=== PATIENT | male | born 1930 | race Caucasian/White ===

== ENCOUNTER 2016-11-13 08:25 | Inpatient (IN) | payer MEDICARE, OTHER ==
--- NOTE | ~2016-11-13 | CO ---
Unit #: [id number] #: [id number] Patient: CHANDLER CROOKS [id number] [facility]. [place], [place] [address] [id number] I MR#: [id number] NAME: CHANDLER CROOKS ROOM: 561 Age: 86 Sex: M Admission Date: 11/13/2016 : 1930 Attending Physician: Saul Giles M.D. Primary Care Physician: Jamie Elizalde Aprn Consultation Date: 11/13/2016 CONSULTATION REPORT REFERRING PHYSICIAN Dr. Alves HISTORY OF PRESENT ILLNESS This is an 86-year-old gentleman with a past medical history of congestive heart failure, diabetes, COPD, chronic respiratory failure, valvular heart disease, pulmonary hypertension, chronic atrial fibrillation, chronic kidney insufficiency, GERD, and dementia, who presented to the emergency department for evaluation of the above. He is a very poor historian. His history is obtained from the family. He has a four-day history of increasing shortness of air and nonproductive cough. Patient was going to see Dr. Stevenson today to see if he is in any state to be transferred to [place]. Patient denies any sort of fevers or chills, but he is having this four-day increasing shortness of breath. He is having increased cough. He is not having chest pain, and he is not having any nausea, vomiting, or diarrhea. He has significant increased swelling of his legs. A few dietary indiscretions. The family states he has had some [place] food recently. Apparently, patient's visiting nurse has been giving him an extra dose of Bumex. Patient has been gaining weight since his last hospital stay. He had +1 lower extremity edema today. Those have, however, been going down even before patient's admission. Patient is close to his baseline. Initial saturation on his home O2 was 87% on two liters nasal cannula. Patient at home has three liters nasal cannula. He has bilateral basilar infiltrates and bilateral pleural effusions. Patient was placed on vancomycin, Zosyn, and tobramycin, and was placed on Solu-Medrol, and we have been asked to consult for any further COPD changes. PAST MEDICAL HISTORY 1. Acute Streptococcus pneumoniae on August 17, 2016, with a peripneumonia pleural effusion. He was discharged to rehab. 2. Congestive heart failure with ejection fraction of 20%. Sees Dr. Avalos. 3. Chronic obstructive pulmonary disease followed by Dr. Stevenson. 4. Chronic respiratory failure on two to three liters of oxygen. 5. Moderate to severe aortic stenosis, not a candidate for TAVR and not a candidate for open heart surgery. 6. Diabetes. 7. Right upper lung nodule. 8. Pulmonary hypertension. 9. Chronic kidney disease stage 3 with baseline creatinine of 1.1. Unit #: [id number] #: [id number] Patient: CHANDLER CROOKS 10. Atrial fibrillation. Patient is not on chronic anticoagulation. PAST SURGICAL HISTORY 1. Bronchoscopy. 2. Chest tube placement. 3. Colonoscopy. SOCIAL HISTORY Patient lives with . He walks with a cane. Former smoker. Full Code. No history of polysubstance use. OCCUPATIONAL HISTORY Noncontributory. FAMILY HISTORY Coronary artery disease. ALLERGIES No known medical allergies. MEDICATIONS 1. Aspirin 81 mg daily. 2. Divalproex 500 mg twice daily. 3. Glipizide 10 mg twice daily. 4. Bumex 2 mg daily. 5. Omeprazole 40 mg daily. 6. Flomax 0.4 mg twice daily. 7. Aldactone 25 mg daily. 8. Symbicort 160/4.5 at 2 puffs inhaled twice daily. 9. Norvasc 5 mg daily. 10. Iron 325 mg twice daily. 11. Lipitor 20 mg daily. 12. MiraLax 17 grams daily. REVIEW OF SYSTEMS Significant for what is in the History of Present Illness. Patient is unable to give much beyond that. PHYSICAL EXAMINATION VITAL SIGNS: T-current 97.4, pulse 90, respiratory rate 18, blood pressure 132/93, and saturating 93% on two liters nasal cannula. Ins and outs not recorded yet. HEENT: Extraocular muscles are intact. Pupils are equal, round, and reactive to light. CHEST: Kind of decreased breath sounds bilaterally. CARDIOVASCULAR: Regular rate. No gallop. ABDOMEN: Soft, nontender, and nondistended. EXTREMITIES: No evidence of edema. DIAGNOSTIC STUDIES LABORATORY: Procalcitonin 0.05. Cardiac enzymes negative x2. INR is 1. BNP is 131. Depakote level is 34. CK-MB is (1) . Lactic acid is 0.8. White count is 6.3, hemoglobin 10.1, and platelets 248,000. Chem-7 significant for glucose of 66, bicarb 34, BUN and creatinine 14 and 0.7. Otherwise, a comprehensive metabolic panel including liver function tests is most unremarkable. ASSESSMENT AND PLAN Unit #: [id number] #: [id number] Patient: CHANDLER CROOKS Worsening respiratory failure. I do suspect this is mostly fluid overload related as labs all appear to be negative. For imaging, I am going to get a CT scan. Try to see if we can get a sputum culture. We will go ahead and do a short course of treatment of healthcare-associated pneumonia and leave him on the triple antibiotics. Hopefully, we will be able to deescalate fairly soon. Thank you very much for this consult and allowing us to participate in the care of this patient. Dictated by.Viv Stevens/walt TD: 11/14/2016 16:38 JOB #: [id number] CONSULTATION REPORT Page 1 of 1 X Michael Duncan MD X CONSULTATION REPORT
--- NOTE | ~2016-11-13 | CR72 ---
[facility] A Service of [facility] RADIOLOGY TEXT RESULTS PATIENT: CHANDLER CROOKS LOCATION: [facility] [id number] : [birth year] UNIT #: [id number] AGE: [address]: Saul Giles MD SEX: M ORDER DR: [id number] [facility] [address] [place], [place] [address] [id number] I MR#: [id number] #: [id number] NAME: CHANDLER CROOKS : 1930 SEX: M STUDY DATE/TIME: 11/15/2016 3:53 UNIT: [facility] ROOM: [facility] STUDY DESCRIPTION: CR Chest Single View Portable Attending Physician: Saul Giles M.D. Referring Physician: Bhavik Self Referred Ordering Physician: Denys Duncan M.D. Primary Care Physician: Jamie Elizalde Aprn MEDICAL IMAGING REPORT This report is preliminary unless electronic signature is present EXAM Portable chest. HISTORY Shortness of air. Congestion. pneumonia x4 days, diabetic. COMPARISON Portable chest, 11/13/2016 FINDINGS Portable view of the chest demonstrates interval improvement in left pleural effusion. Remains a small left-sided effusion as well as probable small right effusion. Stable cardiomegaly. Diffuse pulmonary vascular congestion and findings suggest mild to moderate CHF. Bibasilar atelectasis. No dense airspace disease or consolidation. No invasive tubes or lines. No pneumothorax. Dictated by... Jasmina Cramer M.D. THIS IS AN ELECTRONICALLY VERIFIED REPORT Jasmina Cramer M.D. at 11/15/2016 12:26 PM MELODIE/jerzy TD: 11/15/2016 09:16 JOB #: [id number] MEDICAL IMAGING REPORT Page 1 of 1 COPY
--- NOTE | ~2016-11-13 | CO ---
Unit #: [id number] #: [id number] Patient: CHANDLER CROOKS [id number] [facility] [address] [place], [place] [address] [id number] I MR#: [id number] NAME: CHANDLER CROOKS ROOM: 561 Age: 86 Sex: M Admission Date: 11/13/2016 : 1930 Attending Physician: Saul Giles M.D. Primary Care Physician: Jamie Elizalde Aprn Consultation Date: 11/14/2016 CONSULTATION REPORT HISTORY OF PRESENT ILLNESS This is an 86-year-old white male known to Dr. Bishop at [facility]. The patient has a past medical history of chronic diastolic congestive heart failure, valvular heart disease, permanent atrial fibrillation, old right bundle branch block, hypertension, hyperlipidemia, diabetes mellitus type 2, GERD and family history of angioedema. He was seen at [facility] in July of 2016 for diastolic congestive heart failure. He was also found to have sepsis with Streptococcus pneumoniae. His hospital course was complicated by a parapneumonic effusion requiring chest tube placement. He was found to have severe aortic stenosis and was determined to be a poor candidate for valve replacement secondary to comorbid conditions. In addition, to the above findings he also was treated for chronic kidney disease, physical deconditioning and probable dementia. He presented to [facility] on 11/13/2016 with complaints of dyspnea on exertion for the last 5 weeks. He has also had worsening chest tightness on walking that occurs after only ambulating 15 feet. He has had generalized weakness. He denies PND or resting angina. He does complain of some bilateral lower extremity edema, as well as a cough with mucus production but no hemoptysis. He denies any dizziness or syncope. In the emergency department initial O2 saturation was 87% on 2 liters nasal cannula. Chest x-ray revealed bibasilar infiltrates and bilateral pleural effusions. He was given vancomycin, tobramycin and Zosyn, as well as Solu-Medrol. He was admitted for further evaluation and management. He was given one dose of IV Bumex. Cardiology was consulted for congestive heart failure and atrial fibrillation. PAST MEDICAL HISTORY 1. Previous admission to [facility] August 03 through August 17, 2016 with sepsis secondary to Streptococcus pneumoniae, right pneumothorax status post chest tube placement, acute on chronic diastolic congestive heart failure, respiratory failure, COPD exacerbation and severe aortic stenosis. Also treated for chronic kidney disease, physical deconditioning and dementia. 2. Readmission to [facility] recently with details unavailable. 3. Two-D echocardiogram August 04, 2016 revealed a left ventricular ejection fraction of 60%. Mildly dilated left atrium. Mildly to moderately enlarged right atrial size. Moderately dilated right ventricle. Enjbchtp-tc-tdkfeo aortic stenosis. Mild mitral regurgitation. Clju-zd-ziclinoh tricuspid regurgitation. Right Unit #: [id number] #: [id number] Patient: CHANDLER CROOKS ventricular systolic pressure 56 mmHg. No pericardial effusion. 4. Recurrent atrial fibrillation, not on anticoagulation, possibly due to age and fall risk. Need to clarify. 5. Old right bundle branch block. 6. Hypertension. 7. Hyperlipidemia. 8. Diabetes mellitus type 2. 9. GERD. 10. COPD, on 2-3 liters nasal cannula. 11. Right upper lobe nodule. 12. Dementia. 13. Chronic kidney disease. 14. Reformed tobacco abuse. PAST SURGICAL HISTORY 1. Bronchoscopy. 2. Colonoscopy January 02, 2007, which revealed diverticulosis and a rectal polyp, as well as hemorrhoids. 3. Chest tube placement due to pneumothorax. HOME MEDICATIONS 1. Aspirin 81 mg p.o. daily. 2. Divalproex 500 mg p.o. b.i.d. 3. Glipizide 10 mg p.o. b.i.d. 4. Bumex 2 mg p.o. daily. 5. Omeprazole 40 mg p.o. daily. 6. Flomax 0.4 mg p.o. b.i.d. 7. Spironolactone 25 mg p.o. daily. 8. Symbicort 2 puffs inhalation b.i.d. 9. Norvasc 5 mg p.o. daily. 10. Ferrous sulfate 325 mg p.o. b.i.d. 11. Lipitor 20 mg p.o. at bedtime. 12. MiraLAX 17 grams p.o. daily. ALLERGIES No known drug allergies. SOCIAL HISTORY The patient lives with his in a private residence. He walks with a cane. He is a reformed smoker. There are no reports of alcohol or illicit drug use. FAMILY HISTORY Noncontributory for heart disease. REVIEW OF SYSTEMS A 10-point review of systems is negative except for details noted above in HPI. PHYSICAL EXAMINATION VITAL SIGNS: Temperature 97.7, pulse 73, blood pressure 136/70. CONSTITUTIONAL: This is an 86-year-old white male in no acute distress. SKIN: Warm and dry. NECK: Supple. No jugular vein distention. No hepatojugular reflux. Normal carotid upstrokes. No carotid bruits auscultated. Positive for left carotid bruit. HEART: S1, S2. Regular rate and rhythm. A grade 1/6 systolic ejection murmur. Unit #: [id number] #: [id number] Patient: CHANDLER CROOKS LUNGS: Bilateral breath sounds have decreased air entry in both bases. Respirations even and nonlabored. No rales, rhonchi or wheezes. ABDOMEN: Soft, nontender, nondistended. Positive bowel sounds auscultated x4 quadrants. No ascites noted. DIAGNOSTIC STUDIES LABORATORY: White blood cell count 12.5, hemoglobin 9.4, hematocrit 29.2, platelets 231. Sodium 141, potassium 3.8, chloride 100, CO2 33, BUN 20, creatinine 0.8, glucose 182, AST 18, ALT 13, alkaline phosphatase 41, albumin 2.6, total protein 6.1, phosphorous 3.1, magnesium 1.8. Troponin 0.03 and 0.03. BNP 131. Troponin 0.05 and 0.03. TSH 0.71, free T4 0.94. INR 1.1. Legionella negative. Streptococcus pneumoniae antigen positive. IMAGING: Chest x-ray reveals increased heart size with bilateral pleural effusions and atelectasis. CARDIOVASCULAR: Electrocardiogram reveals atrial fibrillation with a right bundle branch block and left anterior hemiblock. IMPRESSION 1. Acute on chronic diastolic congestive heart failure. 2. Bifascicular block. 3. Exertional angina. 4. Left carotid bruit. 5. Peripheral arterial disease. 6. Diabetes mellitus type 2. 7. Hypertension. 8. Leukocytosis with pneumonia. 9. Recurrent atrial fibrillation, with slow/controlled ventricular rate. Not on anticoagulation. 10. Awjydflw-ll-mlugqw aortic stenosis, July 2016. 11. Reformed tobacco abuse. PLAN 1. The patient presented to the hospital with complaints of shortness of breath and a cough. He was admitted for acute on chronic respiratory failure and pneumonia. 2. Cardiology was consulted for congestive heart failure and atrial fibrillation. 3. The patient will be started on IV Bumex, strict intake and output and fluid restriction. 4. Will start on aspirin, nitrates and lisinopril. 5. The patient will be scheduled for a cardiac catheterization on once volume status is improved. 6. TSH and fasting lipid profile will be obtained. 7. Therapeutic Lovenox will be initiated. 8. Patient may need a permanent pacemaker. 9. Will need to discuss long-term anticoagulation after the cardiac catheterization. Dictated by... Asiya Broussard APRN for Viv Solis/naa Unit #: [id number] #: [id number] Patient: CHANDLER CROOKS TD: 11/17/2016 08:05 JOB #: [id number] CONSULTATION REPORT Page 1 of 1 X X CONSULTATION REPORT
--- NOTE | ~2016-11-13 | EKG ---
PATIENT: CHANDLER CROOKS UNIT #: [id number] Ventricular Rate: 49 BPM Atrial Rate: 37 BPM QRS Duration: 154 ms Q-T Interval: 496 ms QTC Calculation(Bezet): 448 ms Calculated R Tionesta: -150 degrees Calculated T Tionesta: 5 degrees Diagnosis Line: Atrial fibrillation with slow ventricular response Diagnosis Line: Right bundle branch block Diagnosis Line: Abnormal ECG Diagnosis Line: When compared with ECG of 13-NOV-2016 08:10, Diagnosis Line: No significant change was found Diagnosis Line: Confirmed by SHANNAN ZHOU MD ([id number]) on 11/21/2016 Diagnosis Line: 10:21:29 PM INTERPRETING MD: WINNIE DOLAN
--- NOTE | ~2016-11-13 | HP ---
Unit #: [id number] #: [id number] Patient: CHANDLER MUSA [id number] [facility]. [place], [place] [address] [id number] I MR#: [id number] NAME: CHANDLER MUSA ROOM: 73787 Age: 86 Sex: M Admission Date: 11/13/2016 : 1930 Attending Physician: Milana Alves M.D. Referring Physician: Self Referral-Refer Use Only Primary Care Physician: Jamie Elizalde Aprn HISTORY AND PHYSICAL CHIEF COMPLAINT Short of air. HISTORY OF PRESENT ILLNESS The patient is an 86-year-old male with past medical history of congestive heart failure, diabetes, COPD, chronic respiratory failure, valvular heart disease, atrial fibrillation, pulmonary hypertension, chronic kidney disease, GERD, dementia who presented to the emergency department for evaluation of the above. The patient is a poor historian. History is obtained from the patient as well as his family including his son, Claudio Musa, who is his power of assistant district attorney. The patient has had a four-day history of increasing shortness of breath and nonproductive cough. He denies any fever or chills. No chest pain. He has had increased swelling of his legs. Family states that he had [place] food a couple of days ago. Apparently, a visiting nurse gave him an extra dose of Bumex. He has been gaining weight since his last hospital stay. Apparently, he had lost weight during that hospital admission. He is now close to his baseline around 160 pounds. He has been taking his medications as prescribed. In the emergency department, initial oxygen saturation was 87% on 2 L. Chest x-ray shows bibasilar infiltrates and bilateral pleural effusions. He was given vancomycin, tobramycin, and Zosyn in the emergency department as well as 125 mg of Solu-Medrol. He is being admitted to [facility] for evaluation and further treatment. PAST MEDICAL HISTORY 1. Admission to [facility] August 03 through August 17, 2016, for acute respiratory failure. The patient was septic with Streptococcal pneumoniae. He also had a parapneumonic effusion that required chest tube placement. He was discharged to rehab. He was subsequently admitted to [place] (no records). He then went back to rehab and returned home in September. He apparently also completed a course of Levaquin in October for acute bronchitis, according to the family. 2. Congestive heart failure: The patient has an ejection fraction of 60% per the transfer of care summary dated August 10, 2016. He has seen Dr. Avalos in the past. 3. COPD, followed by Dr. Stevenson. 4. Chronic respiratory failure on 2 to 3 L of oxygen per nasal cannula. 5. Dgknbsdw-gp-dxwspy aortic stenosis, not a candidate for TAVR. 6. Diabetes. 7. Right upper lobe nodule. Unit #: [id number] #: [id number] Patient: CHANDLER MUSA 8. Pulmonary hypertension. 9. Chronic kidney disease, stage 3, with a baseline creatinine of 1.1. 10. Dementia. 11. GERD. 12. Atrial fibrillation, not currently on chronic anticoagulation. PAST SURGICAL HISTORY 1. Chest tube placement. 2. Bronchoscopy. 3. Colonoscopy, January 02, 2007, that showed diverticulosis, a diminutive rectal polyp as well as hemorrhoids. SOCIAL HISTORY The patient lives with his . He walks with a cane. He is a former smoker. He is a full code. His son, Claudio Musa, is his power of assistant district attorney. FAMILY HISTORY Notable for there being no history of coronary artery disease. ALLERGIES No known allergies. HOME MEDICATIONS 1. Aspirin 81 mg daily. 2. Divalproex 500 mg twice daily. 3. Glipizide 10 mg twice daily. 4. Bumex 2 mg daily. 5. Omeprazole 40 mg daily. 6. Flomax 0.4 mg twice daily. 7. Aldactone 25 mg daily. 8. Symbicort 160/4.5 two puffs inhaled twice daily. 9. Norvasc 5 mg daily. 10. Iron 325 mg twice daily. 11. Lipitor 20 mg daily. 12. MiraLax 17 g daily. REVIEW OF SYSTEMS A complete review of systems is negative except as indicated in the HPI. Family states that the patient's blood sugars are typically in the 70s to 80s. He was apparently taken off Tradjenta on November 01. The patient completed a course of Levaquin on October 30. The patient apparently sees Dr. Jack regarding anemia. He was scheduled for a bone marrow biopsy tomorrow. DIAGNOSTIC STUDIES LABORATORY: Complete blood count notable for hemoglobin and hematocrit of 10.1 and 31.6 respectively. Troponin is less than 0.05. INR is 1. Lactic acid 0.8. Comprehensive metabolic panel notable for bicarbonate of 34, glucose of 66. Albumin is 2.8. BNP is 131. IMAGING: Chest x-ray shows cardiomegaly with bilateral pleural effusion and bibasilar infiltrates. Both the effusion and infiltrates are worse on the left. CARDIOVASCULAR: EKG shows atrial fibrillation with rate of 61 beats per minute. PHYSICAL EXAMINATION Unit #: [id number] #: [id number] Patient: CHANDLER MUSA VITAL SIGNS: Temperature 97.4, pulse 64, respirations 21, blood pressure 154/81, oxygen saturation was 87% on 2 L. He is currently saturating in the 90s on 3 L. GENERAL: The patient is a male who is awake and alert in no acute distress. HEENT: The head is atraumatic. Mucous membranes are moist. NECK: Supple. Trachea is midline. CARDIOVASCULAR: Irregular. LUNGS: Demonstrate scattered wheezes and rhonchi. Breathing is not labored with conversation. ABDOMEN: Soft, nontender with bowel sounds present in all four quadrants. EXTREMITIES: Nontender. There is 1+ pitting edema. NEUROLOGIC: The patient is awake and alert. He follows commands. PSYCHIATRIC: Mood and affect are normal. The patient is cooperative. SKIN: Skin of examined areas is warm and dry. ASSESSMENT The patient is an 86-year-old male with: 1. Acute on chronic respiratory failure, hypoxic. 2. Healthcare-associated pneumonia: The patient received vancomycin, Zosyn, and tobramycin in the emergency department. 3. Congestive heart failure with an ejection fraction of 60%. 4. Bilateral pleural effusions. 5. Hypoglycemia: The patient is currently eating. A repeat Accu-Cheks is pending. 6. Chronic obstructive pulmonary disease followed by Dr. Stevenson. 7. Valvular heart disease: The patient has rtwioqsa-mu-kiisdx aortic stenosis but is not felt to be a candidate for TAVR. 8. Atrial fibrillation, not currently on chronic anticoagulation, currently rate controlled. 9. Pulmonary hypertension. 10. Right upper lobe nodule: The patient sees Dr. Stevenson. 11. Chronic kidney disease stage 3 with a baseline creatinine of 1.1. The patient's creatinine is 0.7 today. 12. Gastroesophageal reflux disease. 13. Dementia. 14. Former smoker. PLAN 1. Admit to intermediate level. 2. A 2 g sodium 1800 mL fluid restricted heart healthy consistent carb diet. 3. Strict ins and outs. 4. Bumex 2 mg IV daily with first dose now. 5. Oxygen 2 to 4 L to maintain saturations greater than 92%. 6. Blood cultures x2. 7. Sputum culture and sensitivity. 8. Vancomycin, tobramycin, and Zosyn IV for healthcare-associated pneumonia pending further workup. 9. Streptococcal and legionella urine antigen. 10. Procalcitonin level. 11. DuoNebs. 12. Solu-Medrol 80 mg IV q.12 hours. 13. Consult the patient's strapper and buffer, Dr. Stevenson, regarding acute on chronic respiratory failure and pneumonia. 14. Serial cardiac enzymes. 15. Check Depakote level. 16. Accu-Cheks. Unit #: [id number] #: [id number] Patient: CHANDLER MUSA 17. Hemoglobin A1c. 18. Sequential compression devices for deep venous thrombosis prophylaxis. 19. Repeat labs in the morning. 20. Additional workup and consultants based on above. 21. Regarding code status, the patient is a full code. Dictated by Milana Alves M.D. VALORIE/wilton TD: 11/13/2016 12:10 JOB #: [id number] HISTORY AND PHYSICAL Page 1 of 1 X Milana Alves MD X HISTORY AND PHYSICAL
--- NOTE | ~2016-11-13 | US37 ---
[facility] A Service of [facility] & [facility] RADIOLOGY TEXT RESULTS PATIENT: CHANDLER CROOKS LOCATION: B 561-01 : [birth year] UNIT #: [id number] AGE: [address]: Saul Giles MD SEX: M ORDER DR: [id number] [facility] [address] [place], [place] [address] [id number] I MR#: [id number] #: [id number] NAME: CHANDLER CROOKS : 1930 SEX: M STUDY DATE/TIME: 11/14/2016 14:17 UNIT: [facility] ROOM: [facility] STUDY DESCRIPTION: US Carotid W/Doppler Bilateral Attending Physician: Saul Giles M.D. Referring Physician: Self Referral-Refer Use Only Ordering Physician: Denny Avalos M.D. Primary Care Physician: Jamie Elizalde Aprn MEDICAL IMAGING REPORT This report is preliminary unless electronic signature is present EXAM Carotid duplex scan, 11/14/2016 HISTORY Chest pain. FINDINGS The right common carotid artery has minimal plaque. There is a small amount of heterogeneous plaque in the right carotid bulb which extends up into the proximal internal and external carotid arteries. Peak systolic velocity in the mid right internal carotid artery is 176 cm/sec with an end-diastolic velocity of 23 cm/sec. The ICA/CCA ratio on the right is 1.25. Peak systolic velocity in the right external carotid artery is 212 cm/sec. The right vertebral artery is patent with antegrade flow. The left common carotid artery has minimal plaque. There is dense, irregular plaque in the left carotid bulb which extends up into the proximal internal and external carotid arteries. Peak systolic velocity in the mid left internal carotid artery is 140 cm/sec with an end-diastolic velocity of 19 cm/sec. The ICA/CCA ratio on the left is 1.29. Peak systolic velocity in the left external carotid artery is 164 cm/sec. The left vertebral artery is patent with antegrade flow. IMPRESSION Moderate stenosis (50% to 69%) in the internal carotid arteries bilaterally. Significant stenosis of the external carotid arteries on both sides. Patent vertebral arteries bilaterally with antegrade flow. Dictated by... Hussain Lombardi M.D. [facility] A Service of [facility] & [facility] RADIOLOGY TEXT RESULTS PATIENT: CHANDLER CROOKS LOCATION: C5B 561-01 : [birth year] UNIT #: [id number] AGE: [address]: Saul Giles MD SEX: M ORDER DR: THIS IS AN ELECTRONICALLY VERIFIED REPORT Hussain Lombardi M.D. at 11/15/2016 8:16 AM SBS/psc TD: 11/14/2016 23:48 JOB #: [id number] MEDICAL IMAGING REPORT Page 1 of 1 COPY
--- NOTE | ~2016-11-13 | DS ---
Unit #: [id number] #: [id number] Patient: CHANDLER CROOKS [id number] [address] [address] [id number] I MR#: [id number] NAME: CHANDLER CROOKS ROOM: 561 Age: 86 Sex: M Admission Date: 11/13/2016 : 1930 Discharge Date: 11/18/2016 Attending Physician: Saul Giles M.D. Referring Physician: Self Referral-Refer Use Only Primary Care Physician: Jamie Elizalde Aprn DISCHARGE SUMMARY DISCHARGE DIAGNOSES 1. Acute on chronic respiratory failure. 2. Acute on chronic diastolic heart failure. 3. Sick sinus syndrome. 4. Pneumonia. 5. Chronic obstructive pulmonary disease. HOSPITAL COURSE The patient is an 86-year-old male, who presented to [facility] with a complaint of shortness of breath. Initially, the patient was thought to have healthcare-associated pneumonia and was started on vancomycin, Zosyn, and tobramycin. Respiratory cultures ultimately did return growing only normal respiratory vinod, however. The patient's antibiotics were deescalated as a result. The patient was then noted to have some severe bradycardic episodes with heart rates into the low 30s. As a result, the patient was taken for heart catheterization which showed no significant disease and certainly not requiring any intervention. However, given the patient's bradycardia and documented pauses up to 5 seconds, the patient was transferred to [facility] and the pacemaker was placed. The patient has done well status post pacemaker and given return of his breathing to baseline is being discharged home. DISCHARGE MEDICATION Combivent 1 puff q.i.d., Symbicort two puffs b.i.d., prednisone taper, Flomax 0.4 mg p.o. b.i.d., divalproex sodium 500 mg p.o. b.i.d., Norvasc 5 mg p.o. daily, MiraLAX 17 g p.o. daily, Bumex 2 mg p.o. daily, Lipitor 20 mg p.o. q.h.s., lisinopril 10 mg p.o. daily, ferrous sulfate 325 mg p.o. b.i.d., aspirin 81 mg daily, Aldactone 25 mg p.o. daily, omeprazole 40 mg daily, glipizide 10 mg p.o. b.i.d., Levaquin 750 mg p.o. daily x5 days, and vitamin B12 1000 mcg one p.o. daily. FOLLOWUP The patient should follow up with Dr. Avalos in 1 month. Additionally, he should follow up with Dr. Denys Duncan in 2 to 4 weeks. Dictated by... Saul Giles M.D. Unit #: [id number] #: [id number] Patient: CHANDLER CROOKS QUIQUE/chantalel TD: 11/19/2016 01:53 JOB #: [id number] DISCHARGE SUMMARY Page 1 of 1 X Saul Giles MD X DISCHARGE SUMMARY
--- NOTE | ~2016-11-13 | CT57 ---
[facility] A Service of [facility] & [facility] RADIOLOGY TEXT RESULTS PATIENT: CHANDLER CROOKS LOCATION: B 561-01 : [birth year] UNIT #: [id number] AGE: [address]: Saul Giles MD SEX: M ORDER DR: [id number] [facility] [address] [place], [place] [address] [id number] I MR#: [id number] Acc #: [id number] NAME: CHANDLER CROOKS : 1930 SEX: M STUDY DATE/TIME: 11/13/2016 17:41 UNIT: [facility] ROOM: [facility] STUDY DESCRIPTION: CT Chest Wo Cont Attending Physician: Milana Alves M.D. Referring Physician: Self Referral-Refer Use Only Ordering Physician: Denys Duncan M.D. Primary Care Physician: Jamie Elizalde Aprn MEDICAL IMAGING REPORT This report is preliminary unless electronic signature is present EXAM CT chest without contrast HISTORY Pneumonia and shortness of air and cough for [address] exam was performed with one or more of the following radiation dose reduction techniques: Automatic exposure control, adjustment of mA and/or kV according to patient size, and iterative reconstruction. FINDINGS CT chest without contrast demonstrates a small to moderate-sized left pleural effusion and a small right pleural effusion. These are larger on the left and smaller on the right as compared to chest CT 08/05/2016. There is moderate atelectasis in the posterior and inferior lower lobes bilaterally, increased on the left and improved on the right as compared to the prior CT. Mild linear atelectasis or scarring in the posterior right upper lobe at the site of the previously noted rounded density. No new pulmonary nodule or mass. Mild patchy multifocal subsegmental infiltrates in the left upper lobe, and additional mild linear atelectasis or scarring in the anterior left upper lobe, new since the prior CT. No adenopathy. Aortic valve calcification. Normal caliber thoracic aorta. Old sternal fracture deformity with only partial bony bridging across the comminuted sternal fracture line. IMPRESSION 1. Moderate atelectasis in the inferior lower lobes bilaterally. 2. Mild subtle patchy subsegmental infiltrates in the inferior left upper lobe. These could be infectious or inflammatory. 3. Small to moderate-sized left pleural effusion and small right pleural effusion. 4. No adenopathy. [facility] A Service of [facility] & [facility] RADIOLOGY TEXT RESULTS PATIENT: CHANDLER CROOKS LOCATION: [facility] : [birth year] UNIT #: [id number] AGE: [address]: Saul Giles MD SEX: M ORDER DR: 5. Old comminuted sternal fracture deformity with only partial bony fusion across the fracture line. Dictated by... Ricky Lemos M.D. THIS IS AN ELECTRONICALLY VERIFIED REPORT Ricky Lemos M.D. at 11/14/2016 3:53 PM DFL/gage TD: 11/14/2016 07:15 JOB #: [id number] MEDICAL IMAGING REPORT Page 1 of 1 COPY
--- NOTE | ~2016-11-13 | EKG ---
PATIENT: CHANDLER CROOKS UNIT #: [id number] Ventricular Rate: 61 BPM Atrial Rate: 51 BPM QRS Duration: 158 ms Q-T Interval: 454 ms QTC Calculation(Bezet): 457 ms Calculated R Elverta: -156 degrees Calculated T Elverta: 30 degrees Diagnosis Line: Atrial fibrillation Diagnosis Line: Right bundle branch block Diagnosis Line: Abnormal ECG Diagnosis Line: When compared with ECG of 11-AUG-2016 12:05, Diagnosis Line: No significant change was found Diagnosis Line: Confirmed by SHANNAN ZHOU MD ([id number]) on 11/14/2016 Diagnosis Line: 10:26:20 PM INTERPRETING MD: WINNIE DOLAN
--- NOTE | ~2016-11-13 | CR63 ---
[facility] A Service of [facility] / [facility] RADIOLOGY TEXT RESULTS PATIENT: CHANDLER CROOKS LOCATION: [facility] 561 : [birth year] UNIT #: [id number] AGE: [address]: Saul Giles MD SEX: M ORDER DR: [id number] [facility] [address] [place], [place] [address] [id number] I MR#: [id number] Acc #: [id number] NAME: CHANDLER CROOKS : 1930 SEX: M STUDY DATE/TIME: 11/16/2016 4:58 UNIT: B ROOM: [facility] STUDY DESCRIPTION: CR Chest 2 View Attending Physician: Saul Giles M.D. Referring Physician: Self Referral-Refer Use Only Ordering Physician: Saul Giles M.D. Primary Care Physician: Jamie Elizalde Aprn MEDICAL IMAGING REPORT This report is preliminary unless electronic signature is present EXAM 2 views chest 11/16/2016 HISTORY Pre-cath. Short of air. Pneumonia 5 days. TECHNIQUE PA and lateral views of the chest are presented. COMPARISON 11/15/2016 at 0353 hours FINDINGS No significant change. Stable cardiac enlargement. Pulmonary vascular congestion is stable. Abnormal interstitial prominence throughout the lungs. Patchy airspace densities bilateral lung bases with small bilateral pleural effusions. Appearance suggests moderate cardiogenic pulmonary edema with interstitial basilar airspace and bilateral pleural space involvement. Airspace densities at the bilateral lung bases could involved components of pneumonia. Weight should be given to clinical assessment. There is no pneumothorax. No acute appearing bony abnormality. Dictated by... Cisco Redmond M.D. THIS IS AN ELECTRONICALLY VERIFIED REPORT Cisco Redmond M.D. at 11/17/2016 5:05 PM JSK/to [facility] A Service [facility] RADIOLOGY TEXT RESULTS PATIENT: CHANDLER CROOKS LOCATION: [facility] 561 : [birth year] UNIT #: [id number] AGE: [address]: Saul Giles MD SEX: M ORDER DR: TD: 11/16/2016 12:15 JOB #: [id number] MEDICAL IMAGING REPORT Page 1 of 1 COPY
--- NOTE | ~2016-11-13 | CR72 ---
[facility] A Service of [facility] RADIOLOGY TEXT RESULTS PATIENT: CHANDLER CROOKS LOCATION: [facility] 577-01 : [birth year] UNIT #: [id number] AGE: [address]: Milana Alves MD SEX: M ORDER DR: [id number] [facility] [address] [place], [place] [address] [id number] I MR#: [id number] Acc #: [id number] NAME: CHANDLER CROOKS : 1930 SEX: M STUDY DATE/TIME: 11/13/2016 8:32 UNIT: [facility] ROOM: [id number] STUDY DESCRIPTION: CR Chest Single View Portable Attending Physician: Milana Alves M.D. Referring Physician: Bhavik Self Referred Ordering Physician: Vicente Francis M.D. Primary Care Physician: Jamie Elizalde Aprn MEDICAL IMAGING REPORT This report is preliminary unless electronic signature is present EXAM Portable chest, 11/13/2016. HISTORY Short of air for the last 3 days. Former smoker. History of hypertension. COMPARISONS AP portable chest is compared with 08/17/2016. FINDINGS Cardiomegaly is stable. There are small bilateral pleural effusions, improved on the right and worse on the left. There is some vascular congestion, and there is probably a mild degree of edema. More dense alveolar consolidation in the bases could certainly reflect pneumonia in the appropriate clinical setting. No pneumothorax. IMPRESSION Cardiomegaly and probable mild CHF. There are bilateral pleural effusions, improved on the right and worse on the left. Infiltrates are similar, worse on the right and improved on the right. Pneumonia should be excluded clinically. No pneumothorax. Dictated by... Robert Deal Jr., M.D. THIS IS AN ELECTRONICALLY VERIFIED REPORT Robert Deal Jr., M.D. at 11/13/2016 4:47 PM DEONNA/jenna TD: 11/13/2016 12:03 JOB #: [id number] [facility] A Service of [facility] RADIOLOGY TEXT RESULTS PATIENT: CHANDLER CROOKS LOCATION: [facility] 577-01 : [birth year] UNIT #: [id number] AGE: [address]: Milana Alves MD SEX: M ORDER DR: MEDICAL IMAGING REPORT Page 1 of 1 COPY
[~2016-11-13 08:25] MED LIST: ACTOS PO; ACTOS30 MG PO; ALDACTONE25 MG PO; AMLODIPINE BESY10 MG PO; ASPIRIN PO; ASPIRIN81 M2 PO; ATORVASTATIN CA10 MG PO; AUGMENTIN875 M1 PO; BENADRYL IV; BUMEX2 MG PO; COATED ASPIRIN325 M1 PO; COMBIVENT14.7 GM INH; DIVALPROEX SOD500 M1 PO; DIVALPROEX SOD500 MG PO; DOXYCYCLINE HY100 M3 PO; DYAZIDE 37.5/251 CAP PO; EPIPEN0.3 MG/0.1 IM; FAMOTIDINE PO; FLOMAX0.4 M1 PO; GLIPIZIDE10 MG PO; GLUCOTROL PO; IMDUR-ER30 M3 PO; IRON PO; LASIX PO; LASIX20 MG PO; LEVAQUIN750 M1 PO; LIPITOR PO; LIPITOR20 MG DOB; LIPITOR20 MG PO; LISINOPRIL PO; MIRALAX17 GM PO; NORVASC PO; OMEPRAZOLE40 M1 PO; PIOGLITAZONE30 MG PO; PREDNISONE PO; PRILOSEC PO; PRILOSEC40 MG PO; PROTONIX PO; SYMBICORT INH; TAZTIA PO; TRADJENTA5 MG PO; TRIAMTERENE-HCT1 TA6 PO; TRIAMTERENE-HCT1 TA8 PO; Z-PAK
[2016-11-13 08:36] LABS: BASOPHIL% 0.4 % (0-2.5); EOSINOPHIL# 0.2 X10e3 (0-0.7); EOSINOPHIL% 2.6 % (0.0-7.0); HEMATOCRIT 31.6 % (38.0-50.0); HEMOGLOBIN 10.1 gm/dL (13.0-16.0); LYMPHOCYTE# 1.4 X10e3 (1.0-3.5); LYMPHOCYTE% 21.6 % (17.0-45.0); MEAN CELL VOLUME 98.8 FL (83-96); MEAN CORPUSCULAR HEMOGLOBIN 31.6 PG (28-34); MEAN PLATELET VOLUME 7.4 FL (6.5-11.5); MONOCYTE# 0.8 X10e3 (0-1.0); MONOCYTE% 12.1 % (3.0-12.0); NEUTROPHIL% 63.3 % (40-75); PLATELET COUNT 248 X10e3 (140-420); RED CELL DISTRIBUTION WIDTH 16.7 % (11.0-15.5); WHITE BLOOD COUNT 6.3 X10e3 (4.0-10.5)
[2016-11-13 08:44] LABS: DIFF IND NO
[2016-11-13 08:45] LABS: POC - CKMB 3.8 ng/mL (0.0-7.9); POC - TROPONIN <0.05 ng/mL (<=0.05)
[2016-11-13 08:52] LABS: PROTHROMBIN TIME (PATIENT) 10.8 SECONDS (9.6-11.5)
[2016-11-13 09:03] LABS: ALBUMIN SERUM 2.8 g/dL (3.5-5.0); BILIRUBIN, DIRECT 0.2 mg/dL (0.0-0.2); BILIRUBIN,INDIRECT 0.4 mg/dL (0.0-0.9); BILIRUBIN,TOTAL 0.6 mg/dL (0.2-2.0); CALCIUM SERUM 8.9 mg/dL (8.4-10.2); CREATININE SERUM 0.7 mg/dL (0.6-1.4); GLOM FILT RATE Estimated 84.3 mL/min (>60); POTASSIUM 3.8 mmol/L (3.5-5.1); PROTEIN TOTAL SERUM 6.8 g/dL (6.0-8.3)
[2016-11-13 14:43] LABS: CK TOTAL 51 IU/L (36-174)
[2016-11-13 21:37] LABS: CK TOTAL 46 IU/L (36-174)
[2016-11-14 06:26] LABS: HEMATOCRIT 29.2 % (38.0-50.0); HEMOGLOBIN 9.4 gm/dL (13.0-16.0); MEAN CELL VOLUME 97.5 FL (83-96); MEAN CORPUSCULAR HEMOGLOBIN 31.3 PG (28-34); MEAN CORPUSCULAR HGB CONC 32.1 g/dL (30-36); MEAN PLATELET VOLUME 7.5 FL (6.5-11.5); RED CELL DISTRIBUTION WIDTH 16.9 % (11.0-15.5)
[2016-11-14 06:32] LABS: WHITE BLOOD COUNT 12.5 X10e3 (4.0-10.5)
[2016-11-14 07:34] LABS: ALBUMIN SERUM 2.6 g/dL (3.5-5.0); BILIRUBIN,TOTAL 0.4 mg/dL (0.2-2.0); CALCIUM SERUM 8.9 mg/dL (8.4-10.2); CREATININE SERUM 0.8 mg/dL (0.6-1.4); GLOM FILT RATE Estimated 79.8 mL/min (>60); MAGNESIUM 1.8 mg/dL (1.6-3.0); PHOSPHOROUS 3.1 mg/dL (2.5-4.6); POTASSIUM 3.8 mmol/L (3.5-5.1); PROTEIN TOTAL SERUM 6.1 g/dL (6.0-8.3)
[2016-11-14 13:10] LABS: THYROID STIMULATING HORMONE 0.71 uIU/ml (0.34-5.60)
[2016-11-14 13:18] LABS: FREE THYROXIN (T4) 0.94 ng/dL (0.58-1.64)
[2016-11-15 06:23] LABS: BASOPHIL% 0.1 % (0-2.5); HEMATOCRIT 26.7 % (38.0-50.0); HEMOGLOBIN 8.6 gm/dL (13.0-16.0); LYMPHOCYTE# 1.3 X10e3 (1.0-3.5); LYMPHOCYTE% 13.1 % (17.0-45.0); MEAN CELL VOLUME 97.7 FL (83-96); MEAN CORPUSCULAR HEMOGLOBIN 31.6 PG (28-34); MEAN CORPUSCULAR HGB CONC 32.3 g/dL (30-36); MEAN PLATELET VOLUME 7.6 FL (6.5-11.5); MONOCYTE# 0.5 X10e3 (0-1.0); MONOCYTE% 5.1 % (3.0-12.0); NEUTROPHIL# 7.8 X10e3 (1.5-7.1); NEUTROPHIL% 81.7 % (40-75); PLATELET COUNT 206 X10e3 (140-420); RED BLOOD COUNT 2.73 X10e (3.90-5.60); RED CELL DISTRIBUTION WIDTH 17.2 % (11.0-15.5); WHITE BLOOD COUNT 9.6 X10e3 (4.0-10.5)
[2016-11-15 06:26] LABS: DIFF IND NO
[2016-11-15 07:01] LABS: BUN/CREATININE RATIO 32.85; CALCIUM SERUM 8.3 mg/dL (8.4-10.2); CREATININE SERUM 0.7 mg/dL (0.6-1.4); GLOM FILT RATE Estimated 84.3 mL/min (>60); POTASSIUM 3.6 mmol/L (3.5-5.1)
[2016-11-16 05:28] LABS: HEMATOCRIT 27.5 % (38.0-50.0); HEMOGLOBIN 8.8 gm/dL (13.0-16.0); MEAN CORPUSCULAR HEMOGLOBIN 31.8 PG (28-34); MEAN CORPUSCULAR HGB CONC 32.1 g/dL (30-36); MEAN PLATELET VOLUME 8.2 FL (6.5-11.5); RED BLOOD COUNT 2.78 X10e (3.90-5.60); RED CELL DISTRIBUTION WIDTH 17.1 % (11.0-15.5); WHITE BLOOD COUNT 9.7 X10e3 (4.0-10.5)
[2016-11-16 05:56] LABS: INR 1.1; PARTIAL THROMBOPLASTIN TIME 27.7 SECONDS (23.5-31.3); PROTHROMBIN TIME (PATIENT) 11.2 SECONDS (9.6-11.5)
[2016-11-16 06:38] LABS: BUN/CREATININE RATIO 33.33; CALCIUM SERUM 8.8 mg/dL (8.4-10.2); CREATININE SERUM 0.9 mg/dL (0.6-1.4)
[2016-11-16 10:59] LABS: FOLATE (FOLIC ACID) 7.1 ng/mL (>5.8)
[2016-11-18] MEDS ORDERED: COMBIVENT U/D3 M2 INH (14:11)
[2016-11-18] MEDS ORDERED: ZESTRIL10 M1 PO (14:21)
[2016-11-18] MEDS ORDERED: LEVAQUIN750 MG PO (14:22)
[2016-11-18] MEDS ORDERED: B-121000 MC1 PO (14:22)
[2016-11-18] MEDS ORDERED: COMBIVENT RESPIM4 GM INH (14:23)
[2016-11-18] MEDS ORDERED: PREDNISONE10 MG PO (14:24)
[2016-11-18] MEDS ORDERED: AMOXICILLIN875 MG PO (14:26)
== END 2016-11-18 18:09 | disposition home or self-care (01) | DRG 286 ==
LOC: CED 08:25 → CEDOF 10:20 → C5C 15:37 → C5B 20:36
PROVIDERS: Emergency Medicine; Family Medicine; Internal Medicine; Internal Medicine Cardiovascular Disease; Internal Medicine Pulmonary Disease
PROC: 4A023N7 Measurement of Cardiac Sampling and Pressure, Left Heart, Percutaneous Approach (ICD-10-PCS; principal; 2016-11-16)
PROC: B211YZZ Fluoroscopy of Multiple Coronary Arteries using Other Contrast (ICD-10-PCS; 2016-11-16)
PROC: B215YZZ Fluoroscopy of Left Heart using Other Contrast (ICD-10-PCS; 2016-11-16)
DX: I13.0 Hypertensive heart and chronic kidney disease with heart failure and stage 1 through stage 4 chronic kidney disease, or unspecified chronic kidney disease (principal); I50.33 Acute on chronic diastolic (congestive) heart failure; J96.21 Acute and chronic respiratory failure with hypoxia; J18.9 Pneumonia, unspecified organism; E11.22 Type 2 diabetes mellitus with diabetic chronic kidney disease; J44.0 Chronic obstructive pulmonary disease with (acute) lower respiratory infection; N18.3 Chronic kidney disease, stage 3 (moderate); I49.5 Sick sinus syndrome; F03.90 Unspecified dementia, unspecified severity, without behavioral disturbance, psychotic disturbance, mood disturbance, and anxiety; I45.2 Bifascicular block; Z87.891 Personal history of nicotine dependence; Z79.84 Long term (current) use of oral hypoglycemic drugs; E11.649 Type 2 diabetes mellitus with hypoglycemia without coma; I48.2 Chronic atrial fibrillation; I35.0 Nonrheumatic aortic (valve) stenosis; I27.2 Other secondary pulmonary hypertension; K21.9 Gastro-esophageal reflux disease without esophagitis; Z79.82 Long term (current) use of aspirin; R91.1 Solitary pulmonary nodule; I45.10 Unspecified right bundle-branch block; E78.5 Hyperlipidemia, unspecified; I20.8 Other forms of angina pectoris; R01.1 Cardiac murmur, unspecified; I73.9 Peripheral vascular disease, unspecified; D64.9 Anemia, unspecified; Z82.49 Family history of ischemic heart disease and other diseases of the circulatory system
CPT/HCPCS: 36415; 71010; 71020; 71250; 80048; 80053; 80061; 80076; 80164; 80200; 82308; 82550; 82553; 82607; 82728; 82746; 82947; 83036; 83540; 83550; 83605; 83735; 83880; 84100; 84439; 84443; 84484; 85025; 85027; 85610; 85730; 87040; 87070; 87205; 87449; 87633; 87899; 93005; 93880; 94640; 94664; 94760; 96374; 99285; C1769; C1887; C1894; J0696; J1644; J1650; J1815; J2250; J2543; J2920; J2930; J3010; J3260; J3370